=== PATIENT | male | born 1955 | race Two or more races ===

== ENCOUNTER 2020-07-25 08:56 | Outpatient (CLI) | payer OTHER | END 2020-07-25 09:07 | disposition home or self-care (01) | LOC: MRI 08:56 | PROVIDERS: ATTEND Internal Medicine | DX: Q04.6 Congenital cerebral cysts (principal); G40.919 Epilepsy, unspecified, intractable, without status epilepticus; G93.89 Other specified disorders of brain | CPT/HCPCS: 70553; A9575; 70552 ==